=== PATIENT | male | born 1990 | race Caucasian/White ===

== ENCOUNTER 2020-05-22 13:30 | Emergency (ER) | payer MEDICAID ==
[~2020-05-22] VITALS: Ht 177.8 cm; Wt 108.2 kg
[2020-05-22 13:31] VITALS: BP 153/83
--- NOTE | 2020-05-22 14:05 | NUR ---
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
[2020-05-22] MEDS ORDERED: L.E.T SOLUTION TP ONE (14:30)
[2020-05-22] MEDS ORDERED: ONDANSETRON ODT 4 MG PO ONE (14:30)
[2020-05-22] MEDS ORDERED: DIPH,PERTUSS(ACELL),TET VAC/PF 0.5 ML IM-VACC ONE ×2 (14:30→14:36)
[2020-05-22] MEDS ORDERED: ONDANSETRON ODT 4 MG ONE (14:35)
[2020-05-22] MEDS ORDERED: LIDOCAINE-MPF 1%, 5ML ONE (15:24)
[2020-05-22] MEDS ORDERED: NEOSPORIN OINT. PKT 1 PACKET ONE (16:10)
== END 2020-05-22 17:11 | disposition home or self-care (01) ==
LOC: ED 15:17
DX: S01.01XA Laceration without foreign body of scalp, initial encounter (principal); W22.8XXA Striking against or struck by other objects, initial encounter; Y93.89 Activity, other specified; Y92.89 Other specified places as the place of occurrence of the external cause; Y99.8 Other external cause status
CPT/HCPCS: 12001; 70450; 90471; 90715; 99284; Q0162

== ENCOUNTER 2020-06-08 06:23 | Emergency (ER) | payer MEDICAID ==
[~2020-06-08] VITALS: Ht 177.8 cm; Wt 106.3 kg
[2020-06-08 06:27] VITALS: BP 138/69
== END 2020-06-08 07:08 | disposition home or self-care (01) ==
LOC: ED 06:47
DX: S01.01XD Laceration without foreign body of scalp, subsequent encounter (principal); X58.XXXD Exposure to other specified factors, subsequent encounter
CPT/HCPCS: 99281